=== PATIENT | female | born 1955 | race Caucasian/White ===

== ENCOUNTER → 2016-12-26 | Outpatient (CLI) | payer OTHER ==
[~2016-12-26] MED LIST: ACTOS15 MG PO; ALLEGRA PO; ARIMIDEX1 MG PO; CALCIUM CITRAT1 EA10; CETIRIZINE HCL10 MG PO; CLARITIN10 MG; FLONASE ALLERG9.9 ML; GLUCOTROL PO; HCTZ; KEFLEX500 MG PO; LEVOXYL125 MC1 PO; LISINOPRIL; LISINOPRIL PO; LOPID600 MG; MAPAP325 MG PO; METFORMIN PO; MONTELUKAST SOD10 MG PO; MULTI VITAMIN1 EACH PO; NASAL DECONGEST10 M1 PO; OMEPRAZOLE40 M1 PO; PROMETRIUM; VITAMIN C PO; VITAMIN D32000 UNIT PO; ZANTAC PO; [UNRECOGNIZED DRUG - OTHER]
[2016-12-26 12:01] LABS: ALBUMIN SERUM 4.6 g/dL (3.5-5.0); BILIRUBIN,TOTAL 0.7 mg/dL (0.2-2.0); BUN/CREATININE RATIO 21.25; CALCIUM SERUM 9.7 mg/dL (8.4-10.2); CREATININE SERUM 0.8 mg/dL (0.6-1.4); GLOM FILT RATE Estimated 79.6 mL/min (>60); POTASSIUM 4.6 mmol/L (3.5-5.1); PROTEIN TOTAL SERUM 6.8 g/dL (6.0-8.3)
== END | disposition home or self-care (01) ==
LOC: CLAB 10:24
PROVIDERS: Internal Medicine Endocrinology, Diabetes & Metabolism
DX: E11.65 Type 2 diabetes mellitus with hyperglycemia (principal)
CPT/HCPCS: 36415; 80053; 80061; 83036